=== PATIENT | male | born 1985 | race Caucasian/White ===

== ENCOUNTER 2021-04-12 18:18 | Emergency (ER) | payer SELFPAY ==
[2021-04-12] MEDS ORDERED: IBUPROFEN800 MG PO (20:40)
[2021-04-12] MEDS ORDERED: ONDANSETRON ODT4 MG SL (20:40)
[2021-04-12] MEDS ORDERED: AUGMENTIN 875-1 EACH PO (20:40)
== END 2021-04-12 20:50 | disposition home or self-care (01) ==
LOC: ER1 18:18
DX: J40 Bronchitis, not specified as acute or chronic (principal); K02.9 Dental caries, unspecified; J02.9 Acute pharyngitis, unspecified; F17.200 Nicotine dependence, unspecified, uncomplicated; Z20.822 Contact with and (suspected) exposure to COVID-19
CPT/HCPCS: 71045; 87081; 87880; 99283; U0002